=== PATIENT | female | born 1985 | race Caucasian/White ===

== ENCOUNTER → 2018-02-16 | Outpatient (CLI) | payer OTHER, MEDICAID ==
[~2018-02-16] MED LIST: ACET-1966 PO; CALC-515 PO; LORA-802 PO; PREN-127 PO
--- NOTE | 2018-02-16 17:01 | RADIOLOGY IMAGING REPORT ---
FACILITY: [facility] PATIENT NAME: Power Veloz : 1985 MR: [id number] V: [id number] EXAM DATE: ORDERING PHYSICIAN: ALEXEY TALBERT TECHNOLOGIST: Location: [facility] Patient: Power Veloz : 1985 Visit/Account:[id number] Date of Sevice: 02/16/2018 [facility] [place] OB ANATOMICAL SURVEY History: survey ADDITIONAL HISTORY: LMP 10/01/2017 translating to a menstrual age of 19 weeks and five days COMPARISON STUDIES: none FINDINGS: Intrauterine gestations: one presentation: Variable heart rate: 160 bpm Amniotic fluid volume: ALICE 15.3 cm; MVP 4.2 cm Placenta: Fundal. No evidence of previa. Maternal adnexa: negative Cervix: closed. 6.7 cm in length. Anatomic Survey: Neural anatomy unremarkable. Limited view of the lumbosacral spine and transverse views. Spinal axi s unremarkable longitudinal plane. Face lips and nose are visualized. Four-chamber heart and outfl ow tracks, stomach, kidneys, bladder , umbilical cord, normal cord insertion seen. 2 arms and 2 legs visualized. anatomy unremarkable. Biometrics: BPD: 4.6 cm corresponding to 19 weeks six days. 56th Percentile HC: 17.5 cm corresponding to 20 weeks zero days 56th Percentile AC: 14.0 cm corresponding to 19 weeks three days 32nd Percentile FL: 3.0 cm corresponding to 19 weeks two days 27th Percentile Measurements are concordant or within normal variance with composite sonographic age of 22 weeks and five days Estimated weight (EFW): 290 grams +/- 42 grams . 28th percentile based on clinical dates. IMPRESSION: Single living intrauterine gestation in variable presentation with biometric measurements and composi te sonographic age within normal variance of previously established clinical dates. anatomy: Limited view of the spinal anatomy. Otherwise unremarkable Report Dictated By: Shlomo Aguilar MD at 02/16/2018 4:44 PM Report E-Signed By: Shlomo Aguilar MD at 02/16/2018 4:56 PM WSN:[email or web address]
== END ==
LOC: US 09:50
PROVIDERS: ATTEND Advanced Practice Midwife
DX: Z34.92 Encounter for supervision of normal pregnancy, unspecified, second trimester (principal)

== ENCOUNTER → 2018-03-26 | Outpatient (CLI) | payer OTHER, MEDICAID ==
[~2018-03-26] MED LIST changes: +DIPH0.5S2 IM; +DOCU-416 PO; +FERR-41 PO; +RANI-366 PO; +SERT25TA87 PO
== END ==
LOC: LAB 15:36
PROVIDERS: ATTEND Advanced Practice Midwife
DX: O13.2 Gestational [pregnancy-induced] hypertension without significant proteinuria, second trimester (principal); R10.11 Right upper quadrant pain
CPT/HCPCS: 36415; 82040; 82247; 82310; 82374; 82435; 82565; 82947; 84075; 84132; 84155; 84295; 84450; 84460; 84520; 85027

== ENCOUNTER → 2018-04-06 | Outpatient (CLI) | payer OTHER, MEDICAID ==
[~2018-04-06] MED LIST changes: +DIPH0.5D12 IM; -DIPH0.5S2 IM; -DOCU-416 PO; -FERR-41 PO; -RANI-366 PO
[2018-04-06 14:25] LABS: PLATELET COUNT, AUTOMATED 312 K/uL (150-450)
== END ==
LOC: LAB 13:19
PROVIDERS: ATTEND Advanced Practice Midwife
DX: O13.9 Gestational [pregnancy-induced] hypertension without significant proteinuria, unspecified trimester (principal); R10.11 Right upper quadrant pain
CPT/HCPCS: 36415; 82040; 82247; 82310; 82374; 82435; 82565; 82570; 82947; 82950; 84075; 84132; 84155; 84156; 84295; 84450; 84460; 84520; 85025

== ENCOUNTER 2018-04-10 19:42 | Observation (INO) | payer OTHER, MEDICAID ==
[~2018-04-10] VITALS: Ht 157.5 cm; Wt 58.5 kg
[2018-04-10 20:00] VITALS: BP 146/82
[2018-04-10] MEDS ORDERED: RANI-366 PO (20:41)
[2018-04-10] MEDS ORDERED: ACET-1966 PO (20:41)
[2018-04-10 20:43] VITALS: BP 146/82; Ht 157.5 cm; Wt 58.5 kg
[2018-04-10 20:48] LABS: PLATELET COUNT, AUTOMATED 285 K/uL (150-450)
[2018-04-10] MEDS ORDERED: ACETAMINOPHEN 500 MG TAB PO ONE (21:00)
[2018-04-10] MEDS ORDERED: RANITIDINE HCL 150 MG TAB PO ONE (21:45)
--- NOTE | 2018-04-10 22:13 | History & Physical ---
History of Present Illness Age of Patient: 32 : 1 Para or TPAL: 0 EDC per LMP: July 08, 2018 EDC per U/S: July 08, 2018 Estimated Gestational Age: 27 Chief Complaint "right upper quadrant pain" History of Present Illness Pt is 32 y/o that presents with report of intermittent RUQ pain that she has had on and off for 1-2 wks. States pain was more persistent today with onset around 7pm. Pain usually lasts about an hour and subsides but as stated previously, she is was more concerned because of the persistence of pain today. Describes pain as sharp pain from the mid epigastric region the R lat side more up in the rib area. States the pain right now is 4 on 0-10 scale but was a 6-7 on admission. Denies symptoms are aggravated by anything and they spontaneously resolve without treatment. Denies emesis but does report some nausea but states she has nausea on and off since early in . Pt reports mild headache and had headache earlier in the day that did not resolve completely with tylenol. Last dose of tylenol was at 11am today. Denies visual changes. Reports +FM, occasional BH contractions. States she in under a great deal of stress with school and FOC. History Patient's Blood Type: O Positive Rubella Status: Immune Group B Strep Screen: Unknown Obstetrical History: Pt has had routine care initiated at 10 weeks, no gaps in care. Past Medical History: Past medical history is negative for chronic illnesses. Pt has a history of depression and anxiety, was hosptialized as a teen for suicidal ideation without attempt. No history of surgeries or other hospitalizations. Allergies: Coded Allergies: clarithromycin (Unverified Allergy, Unknown, "Stomach pain", 04/10/18) divalproex sodium (Unverified Allergy, Unknown, Rash, 04/10/18) lamotrigine (Unverified Allergy, Unknown, Rash, 04/10/18) nitrofurantoin (Unverified Allergy, Unknown, "Hot flash", 04/10/18) oxcarbazepine (Unverified Allergy, Unknown, Rash, 04/10/18) Social History: Pt is single, contentious situation with FOC. Denies physical abuse. Denies alcohol tobacco or rec drug use. Family History: FHx: heart disease FATHER MOTHER Med Rec Home Meds Active Scripts Sertraline Hcl (ZOLOFT) 25 Mg Tablet, 1 TAB PO QDAY, #30 TAB 5 Refills Prov:CONRAD MATTHEWS CNM 04/06/18 Reported Medications Acetaminophen (TYLENOL) 325 Mg Tablet, 325 MG PO PRN, #2 TAB 04/10/18 Ranitidine Hcl (ZANTAC) 150 Mg Tablet, 150 MG PO BID, TAB 04/10/18 Calcium Carbonate (TUMS) 200 Mg Tab.chew, 200 MG PO, TAB.CHEW 01/13/18 Vits W-Ca,Fe,Fa(<1MG) ( VITAMINS) 1 Each Tablet, 1 EACH PO DAILY, TAB 12/12/17 Review of Systems Constitutional: No Fever, No Weight Loss, No Weight Gain, No Chills, No Night Sweats, No Other Neurological: No Syncope, No Confusion, No Weakness, No Dizziness, No Slurred Speech, No Other Eyes: No Vision Change, No Loss of Vision, No Photophobia, No Other ENT: No Hearing Loss, No Sinus Congestion, No Sore Throat, No Ear Ache, No Tinnitus, No Other Cardiovascular: No Chest Pain, No Palpitations, No Orthostatic Hypotension, No Other Respiratory: No Shortness of Breath, No Cough, No Wheezing, No Other Gastrointestinal: Nausea; No Vomiting, No Diarrhea, No Dysphagia, No Constipation, No Early Satiety, No Hematemesis, No Hematochezia, No Melena, No Abdominal Pain, No Other Genitourinary: Dysuria Musculoskeletal: Pain, Sprain, Strain, Impaired Mobility, Other Psychiatric: Depression, Anxiety Exam General Exam Vital Signs Vital Signs Date Time Temp Pulse Resp B/P (MAP) Pulse Ox O2 Delivery O2 Flow Rate FiO2 04/10/18 20:43 98.8 79 16 146/82 (103) 100 Room Air General Apperance: Alert/Awake/No Acute Distress, Afebrile; No Facial Edema, No Other Neuro: Headache (mild occipital headache) Cardiovascular: Regular Rate and Rhythm; No Edema Respiratory: Clear to Auscultation Abdomen: Gravid - Tender, RUQ Tender (from mid epigastric region to R lateral region) : No CVA Tenderness, No Other Musculoskeletal: No Weakness/Pain Psychological: Alert & Oriented X3, Appropriate Mood & Affect Uterine Contractions(Q min): 0 UC Resting Tone: Soft Fetus Feeling Movement?: Yes Heart Tones: 135 Heart Tone Variabilty: Moderate FHT Accelerations: 15X15 FHT Decelerations: None FHT Category: I Medical Decision Making Data Points Result Diagram: 04/10/18203804/10/182038 Urine P/C 1.7 Amylase 135 AST 21 ALT 24 VTE Prophylasis: Adult Deep Vein Thrombosis/Pulmonary: No Pharmacological Contraindicati: Pt at Low Risk for VTE Mechanical Contraindications: Pt at Low Risk for VTE 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 Monitor BP when awake, nurses to call if BP >140/>90 or persistent headache. 2. Will reassess in am, possibly discharge if BP are normotensive. 3. Dr. Ugalde informed of condtion and agrees with keeping pt in for observation. ) Condition Stable JODY MCNULTY CNM Apr 10, 2018 22:13
[2018-04-11] MEDS ORDERED: ACETAMINOPHEN 500 MG TAB PO PRN (03:15)
[2018-04-11] MEDS ORDERED: SERTRALINE HCL 50 MG TAB PO SCH (09:30)
--- NOTE | 2018-04-11 10:13 | OB/GYN Progress Note ---
OB Subjective Progress Notes Subjective Pt states she slept okay last night on and off. Denies RUQ pain at this time. Pt does report a mild frontal headache. Denies visual disturbances. While visiting with pt regarding plan she suddenly developed lightheadedness. Lowered head of bed and placed on her side and episode passed. GI: POS Nausea (no emesis. ); NEG Vomiting, NEG Flatus, NEG Bowel Movement : Voiding Well Pain: Mild (has not tried tylenol) Neurological: Headache (Mild frontal headache, rates 5 on 0-10) Eyes: No Visual Disturbances OB Objective Physical Exam Vital Signs Date Time Temp Pulse Resp B/P (MAP) Pulse Ox O2 Delivery O2 Flow Rate FiO2 04/10/18 20:43 98.8 79 16 146/82 (103) 100 Room Air General Appearance: Alert/Awake/No Acute Distress, Afebrile Neurological: Headache (mild occipital headache) Eyes: Visual Disturbances (absent) Cardiovascular: Regular Rate and Rhythm Respiratory: Clear to Auscultation Abdomen: RUQ Non-Tender Extremities: Reflexes (patellar reflexes 3+) Psychological: Alert & Oriented X3, Appropriate Mood & Affect Result Diagram: 04/10/18203804/10/182038 24 hour urine started @ 0640 Assessment and Plan 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 Will continue to monitor, NST after breakfast 2. Medicate with tylenol for headache, 3. restart routine medications 4. Continue 24 hour urine 5. May DC to home to complete 24 hour urine at noon if NST is reactive. ) Problems: (1) Elevated blood pressure affecting , antepartum JODY MCNULTY CNM Apr 11, 2018 09:53
--- NOTE | 2018-04-11 15:17 | RADIOLOGY IMAGING REPORT ---
FACILITY: [facility] [place] PATIENT NAME: Power Veloz : 1985 MR: [id number] V: [id number] EXAM DATE: ORDERING PHYSICIAN: JODY MCNULTY TECHNOLOGIST: Location: [facility] Patient: Power Veloz : 1985 Visit/Account:[id number] Date of Sevice: 04/11/2018 EXAMINATION: Limited right upper quadrant ultrasound Additional Pertinent history: Right upper quadrant pain intermittent for one month. Worse last night. Patient 27 weeks . COMPARISON STUDIES: None. FINDINGS: Gallbladder: no stones, sludge, wall thickening or pericholecystic fluid. Liver: Normal size and echotexture. No focal normality and a smooth surface. Portal vein is patent. N o ascites. Common duct: normal 2.7 mm. Pancreas: Normal. Right kidney: Mild prominence of the collecting system without stone or focal abnormality. Otherwise unremarkable. Proximal IVC/Aorta: negative IMPRESSION: 1. No acute abnormality. Normal gallbladder, common bile duct, liver and pancreas. 2. Mild prominence of the right renal collecting system. Cause is not identified. Possibly secondary to the but nonspecific. Report Dictated By: Nghia Hernandes at 04/11/2018 3:10 PM Report E-Signed By: Nghia Hernandes at 04/11/2018 3:13 PM WSN:[id number]
--- NOTE | 2018-04-11 15:35 | OB/GYN Discharge Summary ---
Discharge Summary Reason for Hosp/Final Diag: (1) Elevated blood pressure affecting , antepartum Status: Resolved Hospital Course & Plan: Pt was evaluated for preeclampsia and cholelithiasis. Both were ruled out at this point pending 24 hour urine for protein. Pt has tolerated PO fluid and food, headache resolved and RUQ pain is only intermittent and less painful. Pt will be discharged to home with preeclampsia precautions, encouraged to reduce fatty foods. Has follow up appt 04/20/18. Recommend tylenol for headache, rest, fluids and avoid prolonged R side lying. Lates Vital Signs Vital Signs Date Time Temp Pulse Resp B/P (MAP) Pulse Ox O2 Delivery O2 Flow Rate FiO2 04/10/18 20:43 98.8 79 16 146/82 (103) 100 Room Air Weight (Pounds): 129 Result Diagram: 04/10/18203804/11/18 1231 Condition: Improved Discharge: Home, Self Alf Meds Active Scripts Sertraline Hcl (ZOLOFT) 25 Mg Tablet, 1 TAB PO QDAY, #30 TAB 5 Refills Prov:CONRAD MATTHEWS [facility] 04/06/18 Reported Medications Acetaminophen (TYLENOL) 325 Mg Tablet, 325 MG PO PRN, #2 TAB 04/10/18 Ranitidine Hcl (ZANTAC) 150 Mg Tablet, 150 MG PO BID, TAB 04/10/18 Calcium Carbonate (TUMS) 200 Mg Tab.chew, 200 MG PO, TAB.CHEW 01/13/18 Vits W-Ca,Fe,Fa(<1MG) ( VITAMINS) 1 Each Tablet, 1 EACH PO DA VERNON, TAB 12/12/17 Follow up with: [facility] [phone] Follow up in: Keep scheduled appoint Discharge Diet: As Tolerates (but encouraged low fat diet. ) Discharge Activity: As Tolerates Special Instructions: Will return 24 hour urine in am on 04/12/18. JODY MCNULTY Apr 11, 2018 15:34
== END 2018-04-11 15:53 | disposition home or self-care (01) ==
LOC: OB 19:42
PROVIDERS: ADMIT Obstetrics & Gynecology; ATTEND Obstetrics & Gynecology
DX: O26.892 Other specified pregnancy related conditions, second trimester (principal); Z3A.27 27 weeks gestation of pregnancy
CPT/HCPCS: 36415; 76705; 81001; 82150; 82570; 83615; 83690; 84156; 84550; 85025; G0378; G0379; 82040; 82247; 82310; 82374; 82435; 82565; 82947; 84075; 84132; 84155; 84295; 84450; 84460; 84520

== ENCOUNTER → 2018-04-21 | Outpatient (CLI) | payer OTHER, MEDICAID ==
[2018-04-10 20:43] VITALS: BMI 23.6
[~2018-04-21] MED LIST changes: +RANI-366 PO
== END ==
LOC: LAB 07:51
PROVIDERS: ATTEND Obstetrics & Gynecology
DX: Z02.9 Encounter for administrative examinations, unspecified (principal)

== ENCOUNTER → 2018-04-21 | Outpatient (CLI) | payer OTHER, MEDICAID ==
[2018-04-10 20:43] VITALS: BMI 23.6
== END ==
LOC: LAB 15:53
PROVIDERS: ATTEND Obstetrics & Gynecology
DX: O14.90 Unspecified pre-eclampsia, unspecified trimester (principal)
CPT/HCPCS: 36415; 82040; 82247; 82310; 82374; 82435; 82565; 82947; 84075; 84132; 84155; 84295; 84450; 84460; 84520; 85027

== ENCOUNTER → 2018-05-05 | Outpatient (CLI) | payer OTHER, MEDICAID ==
[2018-04-10 20:43] VITALS: BMI 23.6
== END ==
LOC: LAB 16:06
PROVIDERS: ATTEND Obstetrics & Gynecology
DX: O14.93 Unspecified pre-eclampsia, third trimester (principal)
CPT/HCPCS: 36415; 82040; 82247; 82310; 82374; 82435; 82565; 82947; 84075; 84132; 84155; 84295; 84450; 84460; 84520; 85027

== ENCOUNTER → 2018-05-08 | Outpatient (CLI) | payer OTHER, MEDICAID ==
[2018-04-10 20:43] VITALS: BMI 23.6
[~2018-05-08] MED LIST changes: +DOCU-416 PO; +FERR-41 PO
== END ==
LOC: LAB 10:57
PROVIDERS: ATTEND Obstetrics & Gynecology
DX: Z11.3 Encounter for screening for infections with a predominantly sexual mode of transmission (principal); Z11.8 Encounter for screening for other infectious and parasitic diseases
CPT/HCPCS: 87491; 87591

== ENCOUNTER → 2018-05-12 | Outpatient (CLI) | payer OTHER, MEDICAID ==
[2018-04-10 20:43] VITALS: BMI 23.6
== END ==
LOC: LAB 16:29
PROVIDERS: ATTEND Obstetrics & Gynecology
DX: O14.93 Unspecified pre-eclampsia, third trimester (principal)
CPT/HCPCS: 36415; 82040; 82247; 82310; 82374; 82435; 82565; 82947; 84075; 84132; 84155; 84295; 84450; 84460; 84520; 85027

== ENCOUNTER → 2018-05-19 | Outpatient (CLI) | payer OTHER, MEDICAID ==
[2018-04-10 20:43] VITALS: BMI 23.6
== END ==
LOC: LAB 16:29
PROVIDERS: ATTEND Obstetrics & Gynecology
DX: O14.93 Unspecified pre-eclampsia, third trimester (principal)
CPT/HCPCS: 36415; 82040; 82247; 82310; 82374; 82435; 82565; 82947; 84075; 84132; 84155; 84295; 84450; 84460; 84520; 85027

== ENCOUNTER → 2018-05-26 | Outpatient (CLI) | payer OTHER, MEDICAID ==
[2018-04-10 20:43] VITALS: BMI 23.6
[~2018-05-26] MED LIST changes: -DIPH0.5D12 IM; +DIPH0.5S2 IM
== END ==
LOC: LAB 15:30
PROVIDERS: ATTEND Student in an Organized Health Care Education/Training Program
DX: Z36.85 Encounter for antenatal screening for Streptococcus B (principal); O14.93 Unspecified pre-eclampsia, third trimester
CPT/HCPCS: 36415; 82040; 82247; 82310; 82374; 82435; 82565; 82947; 84075; 84132; 84155; 84295; 84450; 84460; 84520; 85027; 87081

== ENCOUNTER → 2018-05-28 | Outpatient (CLI) | payer OTHER, MEDICAID ==
[2018-04-10 20:43] VITALS: BMI 23.6
--- NOTE | 2018-05-28 19:14 | RADIOLOGY IMAGING REPORT ---
FACILITY: [facility] [place] PATIENT NAME: Power Veloz : 1985 MR: [id number] V: [id number] EXAM DATE: [id number] ORDERING PHYSICIAN: CONRAD MATTHEWS TECHNOLOGIST: Location: [facility] Patient: Power Veloz : 1985 Visit/Account:[id number] Date of Sevice: 05/28/2018 Limited OB ultrasound Indication: Hypertension. Evaluate growth and ALICE. Comparison: February 16, 2018 FINDINGS: Intrauterine gestations: one presentation: Transverse heart rate: 155 bpm Amniotic fluid index: 21 cm Largest amniotic fluid pocket 6.3 cm Placenta: Anterior/fundal without previa Gestational Parameters: BPD: 8.53 cm 34 weeks and 3 days. 59th percentile HC: 32.62 cm 37 weeks and 0 days. 86th percentile AC: 30.99 cm 35 weeks and 0 days. 79th percentile FL: 6.41 cm 33 weeks and 1 day. 18th percentile Average ultrasound age (AUA): 35 weeks and 0 days. Estimated gestational age based on LMP datin weeks and 0 days JAIME: 07/02/2018 based on today's ultrasound age Estimated weight (EFW): 2467 g +/-360 g EFW for LMP: 62nd percentile IMPRESSION: 1. Single live intrauterine gestation; estimated ultrasound age 35 weeks and 0 days. 2. ALICE measuring 21 cm Report Dictated By: Keagan Serra MD at 05/28/2018 7:06 PM Report E-Signed By: Keagan Serra MD at 05/28/2018 7:09 PM WSN:[id number]
== END ==
LOC: US 01:35
PROVIDERS: ATTEND Advanced Practice Midwife
DX: O14.93 Unspecified pre-eclampsia, third trimester (principal)
CPT/HCPCS: 76815

== ENCOUNTER → 2018-06-02 | Outpatient (CLI) | payer OTHER, MEDICAID ==
[2018-04-10 20:43] VITALS: BMI 23.6
== END ==
LOC: LAB 16:26
PROVIDERS: ATTEND Obstetrics & Gynecology
DX: O14.93 Unspecified pre-eclampsia, third trimester (principal)
CPT/HCPCS: 36415; 82040; 82247; 82310; 82374; 82435; 82565; 82947; 84075; 84132; 84155; 84295; 84450; 84460; 84520; 85027

== ENCOUNTER → 2018-06-07 | Outpatient (REF) | payer OTHER, MEDICAID ==
[2018-04-10 20:43] VITALS: BMI 23.6
== END ==
LOC: ZZSENDIN 10:04
PROVIDERS: ATTEND Obstetrics & Gynecology
DX: O14.13 Severe pre-eclampsia, third trimester (principal)
CPT/HCPCS: 82570; 84156

== ENCOUNTER → 2018-06-08 | Outpatient (CLI) | payer OTHER, MEDICAID ==
[2018-04-10 20:43] VITALS: BMI 23.6
== END ==
LOC: LAB 15:00
PROVIDERS: ATTEND Obstetrics & Gynecology
DX: O14.03 Mild to moderate pre-eclampsia, third trimester (principal)
CPT/HCPCS: 36415; 82040; 82247; 82310; 82374; 82435; 82565; 82947; 84075; 84132; 84155; 84295; 84450; 84460; 84520; 85027

== ENCOUNTER → 2018-06-16 | Outpatient (CLI) | payer OTHER, MEDICAID ==
[2018-04-10 20:43] VITALS: BMI 23.6
[2018-06-16 16:51] LABS: PLATELET COUNT, AUTOMATED 286 K/uL (150-450)
== END ==
LOC: LAB 16:28
PROVIDERS: ATTEND Advanced Practice Midwife
DX: O16.3 Unspecified maternal hypertension, third trimester (principal); O14.93 Unspecified pre-eclampsia, third trimester
CPT/HCPCS: 36415; 82040; 82247; 82310; 82374; 82435; 82565; 82947; 84075; 84132; 84155; 84295; 84450; 84460; 84520; 85025

== ENCOUNTER 2018-06-19 19:51 | Observation (INO) | payer OTHER, MEDICAID ==
[~2018-06-19] VITALS: Ht 157.5 cm; Wt 61.7 kg
[2018-06-19] MEDS ORDERED: DLR(*) 1000 ML BAG 1,000 ML IV PRN (19:52)
[2018-06-19] MEDS ORDERED: LR(*) 1000 ML BAG 1,000 ML IV PRN (19:52)
[2018-06-19 20:36] LABS: PLATELET COUNT, AUTOMATED 337 K/uL (150-450)
[2018-06-19 20:40] VITALS: BP 150/82; Ht 157.5 cm; Wt 61.7 kg
--- NOTE | 2018-06-20 17:19 | History & Physical ---
History of Present Illness Age of Patient: 32 : 1 Para or TPAL: 0 Estimated Gestational Age: 37 Chief Complaint contractions and elevated BP in History of Present Illness PT well known to me here today with c/o elevated BP at home in the 140/90s and some mild contractions. She is known to have proteinuria but has not met BP criteria for pre-e. She is seen regularly in the office for 2xweekly NSTs and weekly ALICE. She reports good FM, no LOF or VB. She denies QIU, vision changes or abdominal pain. History Allergies: Coded Allergies: clarithromycin (Unverified Allergy, Unknown, "Stomach pain", 04/10/18) divalproex sodium (Unverified Allergy, Unknown, Rash, 04/10/18) lamotrigine (Unverified Allergy, Unknown, Rash, 04/10/18) nitrofurantoin (Unverified Allergy, Unknown, "Hot flash", 04/10/18) oxcarbazepine (Unverified Allergy, Unknown, Rash, 04/10/18) Social History: Pt is single, contentious situation with FOC. Denies physical abuse. Denies alcohol tobacco or rec drug use. Family History: FHx: heart disease FATHER MOTHER Med Rec Home Meds Active Scripts Sertraline Hcl (ZOLOFT) 25 Mg Tablet, 2 TAB PO QDAY, #60 TAB 5 Refills Prov:JOSE DANIEL MATTHEWSBETH Cristian LENTZ 05/22/18 Reported Medications Acetaminophen (TYLENOL) 325 Mg Tablet, 325 MG PO PRN, #2 TAB 04/10/18 Ranitidine Hcl (ZANTAC) 150 Mg Tablet, 150 MG PO BID, TAB 04/10/18 Calcium Carbonate (TUMS) 200 Mg Tab.chew, 200 MG PO, TAB.CHEW 01/13/18 Vits W-Ca,Fe,Fa(<1MG) ( VITAMINS) 1 Each Tablet, 1 EACH PO DAILY, TAB 12/12/17 Discontinued Scripts Docusate Sodium (COLACE) 100 Mg Capsule, 100 MG PO BID, #60 CAPSULE 2 Refills Prov:ALEXEY TALBERT MD 05/08/18 Ferrous Sulfate (FERROUS SULFATE) 325 Mg Tablet.dr, 1 TAB PO BID, #60 TAB 2 Refills Prov:ALEXEY TALBERT MD 3/29/19 Review of Systems Constitutional: No Fever Neurological: Other (intermittent headaches that resolve spontaneously, no currently ) Eyes: No Vision Change Cardiovascular: No Chest Pain Respiratory: No Shortness of Breath Gastrointestinal: No Nausea, No Vomiting Exam General Exam Vital Signs Vital Signs Date Time Temp Pulse Resp B/P (MAP) Pulse Ox O2 Delivery O2 Flow Rate FiO2 06/19/18 20:40 99.2 86 16 150/82 (104) 100 Room Air General Apperance: Alert/Awake/No Acute Distress Neuro: No Gross deficits Eyes: Normal Extraocular Movement & Vison ENT: Normal Abdomen: Gravid - Non-Tender Extremities: No Cyanosis,Clubbing or Edema Integumentary: Skin Intact without Lesions or Rash Psychological: Alert & Oriented X3, Appropriate Mood & Affect Cervical Dialation: 1 Cervical Effacement (%): 30 Cervical Consistency: Soft Cervical Position: Mid Station: -1 Presentation: Vertex Uterine Contractions(Q min): 2 Uterine Contraction Strength: Mild Fetus Feeling Movement?: Yes Heart Tone Variabilty: Moderate FHT Accelerations: 15X15 FHT Decelerations: None FHT Category: I Medical Decision Making Data Points Result Diagram: 06/19/18202106/19/182021 Pre-Admit Course Medical Record Review: Yes 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 Reactive NST. PT not feeling the ctx regularly. Labor and pre-e precautions reviewed. PIH labs normal with exception of known proteinuria. Pt to follow up in office as scheduled. ) ROSALVA LOPEZ DO June 20, 2018 17:19
== END 2018-06-19 21:50 | disposition home or self-care (01) ==
LOC: OB 19:51
PROVIDERS: ADMIT Obstetrics & Gynecology; ATTEND Obstetrics & Gynecology
DX: O47.1 False labor at or after 37 completed weeks of gestation (principal); Z3A.37 37 weeks gestation of pregnancy
CPT/HCPCS: 36415; 81001; 82570; 84156; 85025; G0378; G0379; 82040; 82247; 82310; 82374; 82435; 82565; 82947; 84075; 84132; 84155; 84295; 84450; 84460; 84520

== ENCOUNTER → 2018-06-23 | Outpatient (CLI) | payer OTHER, MEDICAID ==
[2018-06-19 20:40] VITALS: BMI 24.9
== END ==
LOC: LAB 15:59
PROVIDERS: ATTEND Advanced Practice Midwife
DX: O14.93 Unspecified pre-eclampsia, third trimester (principal)
CPT/HCPCS: 36415; 82040; 82247; 82310; 82374; 82435; 82565; 82947; 84075; 84132; 84155; 84295; 84450; 84460; 84520; 85027

== ENCOUNTER 2018-06-30 17:10 | Inpatient (IN) | payer OTHER, MEDICAID ==
[~2018-06-30] VITALS: Ht 157.5 cm; Wt 63.0 kg
[2018-06-30] MEDS ORDERED: CALCIUM CARBONATE 500 MG CHEW PO PRN (17:35)
[2018-06-30] MEDS ORDERED: ONDANSETRON 4 MG/2 ML VIAL IVP PRN (17:35)
[2018-06-30] MEDS ORDERED: FAMOTIDINE(*) 20MG/50ML PREMIX 50 ML IVPB PRN (17:38)
[2018-06-30] MEDS ORDERED: OXYTOCIN 30 UNIT/NS 500 ML 500 ML IV PRN (17:38)
[2018-06-30] MEDS: LR(*) 1000 ML BAG 1,000 ML IV SCH (17:38)
[2018-06-30] MEDS ORDERED: LIDOCAINE 1% LOCAL 300 MG/30ML INJ PRN (17:40)
[2018-06-30] MEDS ORDERED: LIDOCAINE/SOD BICARB 8.4% SYR SC PRN (17:40)
[2018-06-30] MEDS ORDERED: METOCLOPRAMIDE 10 MG/2 ML SDV IVP PRN (17:40)
[2018-06-30] MEDS ORDERED: DINOPROSTONE 10 MG INSERT PV ONE (17:40)
[2018-06-30] MEDS ORDERED: fentaNYL CITR 100 MCG/2 ML AMP IVP PRN (17:40)
[2018-06-30] MEDS ORDERED: FLUSH 10 ML SYR IVP PRN (17:40)
[2018-06-30] MEDS ORDERED: FLUT16SP19 NS (17:45)
[2018-06-30] MEDS ORDERED: MAGN400T4 PO (17:45)
[2018-06-30] MEDS ORDERED: LORA10CA3 PO (17:45)
[2018-06-30 17:55] LABS: PLATELET COUNT, AUTOMATED 303 K/uL (150-450)
--- NOTE | 2018-06-30 18:57 | History & Physical ---
History of Present Illness EDC per LMP: July 08, 2018 Estimated Gestational Age: 38.6 Chief Complaint Induction for preeclampsia History of Present Illness 32-year-old at 38w6d presents for induction of labor due to preeclampsia without severe features. The patient was diagnosed with isolated proteinuria on 04/12/18. She failed to have additional elevated blood pressures except for one time on labor and delivery until recently. She presented to clinic this her noon for an NST and was found to have a blood pressure 140/94. This is her second elevated in clinic. She is therefore admitted for induction of labor due to preeclampsia without severe features. She denies any preeclampsia symptoms. She denies any uterine contractions, vaginal bleeding or loss of fluid. She reports good movement. Her care is by IMG. Her is otherwise complicated by bipolar disorder, history of anorexia and social issues with father of the baby. History Patient's Blood Type: O Positive Rubella Status: Immune Group B Strep Screen: Negative Obstetrical History: Primip Past Medical History: PMH: Bipolar disorder PSH: None Allergies: Coded Allergies: clarithromycin (Unverified Allergy, Unknown, "Stomach pain", 04/10/18) divalproex sodium (Unverified Allergy, Unknown, Rash, 04/10/18) lamotrigine (Unverified Allergy, Unknown, Rash, 04/10/18) nitrofurantoin (Unverified Allergy, Unknown, "Hot flash", 04/10/18) oxcarbazepine (Unverified Allergy, Unknown, Rash, 04/10/18) Social History: Pt is single, contentious situation with FOC. Denies physical abuse. Denies alcohol tobacco or rec drug use. Family History: FHx: heart disease FATHER MOTHER Med Rec Home Meds Active Scripts Sertraline Hcl (ZOLOFT) 25 Mg Tablet, 2 TAB PO QDAY, #60 TAB 5 Refills Prov:MATTHEWSCONRAD CNM 05/22/18 Reported Medications Loratadine (CLARITIN) 10 Mg Capsule, 10 MG PO, CAPSULE 06/30/18 Fluticasone Prop 50 Mcg Ns (FLONASE 50 MCG NS) 16 Gm [place].susp, 1 SPRAY NS DAILY, BOT 06/30/18 Magnesium Oxide (MAG-OXIDE) 400 Mg Tablet, 250 MG PO 06/30/18 Acetaminophen (TYLENOL) 325 Mg Tablet, 325 MG PO PRN, #2 TAB 04/10/18 Ranitidine Hcl (ZANTAC) 150 Mg Tablet, 150 MG PO BID, TAB 04/10/18 Calcium Carbonate (TUMS) 200 Mg Tab.chew, 200 MG PO, TAB.CHEW 01/13/18 Vits W-Ca,Fe,Fa(<1MG) ( VITAMINS) 1 Each Tablet, 1 EACH PO DAILY, TAB 12/12/17 Review of Systems Constitutional: No Fever Neurological: No Syncope Eyes: No Vision Change Cardiovascular: No Chest Pain Respiratory: No Shortness of Breath, No Cough Gastrointestinal: No Nausea, No Vomiting, No Diarrhea Genitourinary: No Dysuria Musculoskeletal: No Pain Psychiatric: No Depression, No Anxiety Exam General Exam Vital Signs Vitals: Weight 139 lbs 0.6 oz / 63.632452 kg Temperature 98.0 F / 36.67 C - Temporal Pulse 80 Blood Pressure 140/94 Sitting, Left Arm Pulse Oximetry 100%, RA General Apperance: Alert/Awake/No Acute Distress Neuro: No Gross deficits Eyes: Normal Extraocular Movement & Vison Cardiovascular: Regular Rate and Rhythm Respiratory: No Respiratory Distress, Clear to Auscultation Abdomen: Gravid - Non-Tender : Normal Musculoskeletal: No Weakness/Pain Extremities: No Cyanosis,Clubbing or Edema Integumentary: Skin Intact without Lesions or Rash Psychological: Alert & Oriented X3, Appropriate Mood & Affect Cervical Dialation: 1 Cervical Effacement (%): 50 Cervical Consistency: Firm Cervical Position: Posterior Station: -3 Presentation: Vertex Uterine Contractions(Q min): 3 Uterine Contraction Strength: Mild UC Resting Tone: Soft Fetus FHT Category: I Medical Decision Making Data Points Result Diagram: 06/30/18174406/30/181744 Assessment and Plan Problems: (1) Pre-eclampsia during in third trimester, antepartum Assessment & Plan: 32-year-old at 38w6d presents for induction of labor due to preeclampsia without severe features. On the monitor, she is having UCx every 2-3 minutes but she cannot feel them. Her cervix is unfavorable, therefore, she will receive Cervidil overnight. Her laboratory evaluation is pending. Will monitor blood pressure closely. (2) Bipolar disorder Assessment & Plan: She is currently on Zoloft 50 mg per day and doing well. She has significant social issues throughout her with the father of the baby. We will monitor her mood closely . Problem Qualifiers (1) Bipolar disorder: Active/Remission status: currently active ALEXEY TALBERT MD June 30, 2018 16:43
[2018-06-30 19:00] VITALS: BP 138/86; Ht 157.5 cm; Wt 63.0 kg
[2018-06-30] MEDS ORDERED: FAMOTIDINE 20 MG TAB PO ONE (20:30)
[2018-06-30] MEDS ORDERED: ZOLPIDEM TARTRATE 5 MG TAB PO PRN (20:30)
[2018-06-30] MEDS: ACETAMINOPHEN 500 MG TAB PO PRN (21:08)
[2018-07-01] VITALS (14 sets, daily range): BP systolic 99–142; BP diastolic 66–92
[2018-07-01] MEDS: ACETAMINOPHEN 500 MG TAB PO PRN (02:49)
[2018-07-01] MEDS: LR(*) 1000 ML BAG 1,000 ML IV SCH (03:38)
[2018-07-01] MEDS ORDERED: OXYTOCIN 30 UNIT/NS 500 ML 500 ML IV PRN (04:27)
[2018-07-01] MEDS ORDERED: TERBUTALINE SULF 1 MG/ML VIAL SUBQ PRN (04:30)
[2018-07-01] MEDS ORDERED: LIDOCAINE/PF 2% 200MG/10ML AMP 200 MG/10 ML AMPUL EPI PRN (09:45)
[2018-07-01] MEDS ORDERED: fentaNYL CITR 100 MCG/2 ML AMP IT PRN (09:45)
[2018-07-01] MEDS ORDERED: LIDO/EPI 2% MPF 1:200,000 20ML EPI PRN (09:45)
[2018-07-01] MEDS ORDERED: FENTANYL/ROPIVACAINE 100 ML BAG EPI PRN (09:45)
[2018-07-01] MEDS ORDERED: BUPIVACAINE 0.25% MPF INJ EPI PRN (09:45)
[2018-07-01] MEDS ORDERED: CITRIC ACID/SOD CIT 15 ML UDC PO PRN (09:45)
[2018-07-01] MEDS ORDERED: BUPIVACAINE 0.5% INJ 30ML VIAL EPI PRN (09:45)
[2018-07-01] MEDS ORDERED: DLR(*) 1000 ML BAG 1,000 ML IV SCH (09:48)
[2018-07-01] MEDS ORDERED: fentaNYL CITR 100 MCG/2 ML AMP ONE (10:14)
[2018-07-01] MEDS ORDERED: OXYTOCIN 10 UNIT/ML SDV ONE (10:15)
[2018-07-01] MEDS ORDERED: MORPHINE PF 5 MG/10 ML AMP ONE (10:29)
[2018-07-01] MEDS ORDERED: OXYTOCIN 30 UNIT/D5LR 500 ML 500 ML IV PRN (11:43)
[2018-07-01] MEDS ORDERED: PROMETHAZINE 25 MG/ML 1 ML AMP IVP PRN (11:45)
[2018-07-01] MEDS ORDERED: MAGNESIUM HYDROXIDE* 30ML UDCP PO PRN (11:45)
[2018-07-01] MEDS ORDERED: LANOLIN OINT 7 GM TUBE TP PRN (11:45)
[2018-07-01] MEDS ORDERED: ONDANSETRON 4 MG/2 ML VIAL IV PRN (11:45)
[2018-07-01] MEDS ORDERED: SIMETHICONE 80 MG CHEW CHEW PRN (11:45)
--- NOTE | 2018-07-01 11:48 | Post Operative Note ---
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 Rose Strapper And Buffer: Dr. Sánchez, dental laboratory assistant was deemed necessary because no entry level marketing assistant or resident physician was available. Anesthesia: Spinal Diagnosis Pre-Op Diagnosis: IUP @ 39 weeks, pre-eclampsia without severe features, nonreassuring status Post-Op Diagnosis: Same as above with delivery of viable cph male , 6lb 8 oz, apgars 7 and 8 Procedure Findings: Normal appearing uterus, tubes and ovaries Procedure(s): PLTCS Specimen Removed:(Maybe N/A): Umbilical cord gases, cord blood, placenta Complications: none Fluids Estimated Blood Loss: 500 cc Dictated Date OP Note Dictated: July 01, 2018 ROSALVA ROSE DO July 01, 2018 11:47
[2018-07-01] MEDS ORDERED: PHENYLEPHRINE 10 MG/1 ML VIAL ONE (11:52)
[2018-07-01] MEDS ORDERED: ONDANSETRON 4 MG/2 ML VIAL ONE (11:52)
--- NOTE | 2018-07-01 12:43 | Anesthesia OB Pre-Anes Eval ---
History of Present Illness Anesthesia Start Date: July 01, 2018 Anesthesia Start Time: 10:38 OB Anesthesia Diagnosis: induction - medical, primary c/section Current Complication: other (Preeclampsia (See OB note)) Complications: Distress (See RN and OB notes for details) EDC: July 08, 2018 : 1 Para: 0 Vital Signs: at 10:39: BP 142/92, HR 80s, O2sat 98% Pain Ratin Result Diagram: 06/30/18 1745 06/30/18 1745 Height (Inches): 62.00 Weight (Pounds): 139 Platelet trends have been stable Past Medical History Medical History: hypertension (isolated/periodic), other (Hx Bipolar disorder, Hx Anorexia) Surgical History: no surgical history (Had wisdom teeth pulled. Unsure of anesthesia used.) Previous Anesthesia: other Hx Anesthesia Reactions: No Hx Family Anesthesia Reaction: No Current Medications: pitocin Home Meds Active Scripts Sertraline Hcl (ZOLOFT) 25 Mg Tablet, 2 TAB PO QDAY, #60 TAB 5 Refills Prov:CONRAD MATTHEWS CNCristian 05/22/18 Reported Medications Loratadine (CLARITIN) 10 Mg Capsule, 10 MG PO, CAPSULE 06/30/18 Fluticasone Prop 50 Mcg Ns (FLONASE 50 MCG NS) 16 Gm [place].susp, 1 SPRAY NS DAILY, BOT 06/30/18 Magnesium Oxide (MAG-OXIDE) 400 Mg Tablet, 250 MG PO 06/30/18 Acetaminophen (TYLENOL) 325 Mg Tablet, 325 MG PO PRN, #2 TAB 04/10/18 Ranitidine Hcl (ZANTAC) 150 Mg Tablet, 150 MG PO BID, TAB 04/10/18 Calcium Carbonate (TUMS) 200 Mg Tab.chew, 200 MG PO, TAB.CHEW 01/13/18 Vits W-Ca,Fe,Fa(<1MG) ( VITAMINS) 1 Each Tablet, 1 EACH PO DAILY, TAB 12/12/17 Allergies: Coded Allergies: clarithromycin (Unverified Allergy, Unknown, "Stomach pain", 04/10/18) divalproex sodium (Unverified Allergy, Unknown, Rash, 04/10/18) lamotrigine (Unverified Allergy, Unknown, Rash, 04/10/18) nitrofurantoin (Unverified Allergy, Unknown, "Hot flash", 04/10/18) oxcarbazepine (Unverified Allergy, Unknown, Rash, 04/10/18) Anesthesia OB ROS Eyes ROS: contacts in Airway Class: l GI ROS: ice chips ASA Classification: 2 Assessment and Plan Anesthesia Plan: SAB Assessment: lungs CTA bilaterally, RRR, no MRG, no syncope, no CP, no edema Anesthesia Stop Day: July 01, 2018 Anesthesia Stop Time: 11:53 DEVYN DIOR CRNA July 01, 2018 12:43
--- NOTE | 2018-07-01 12:49 | Procedure Note ---
Anesthetic Placement Note Anesthesia Plan: SAB Permit for Anesthesia Signed: Yes Anesthesia Technique: Patient Sitting Anesthesia Prep: Chlorhexidine (no tint in chlorhexidine. Betadine used as well) Interspace: L 3-4 Local Anesthetic: 1% Lidocaine, 25 Gauge Needle Amount Local - cc's: 2 Anesthesia Needle: 25g Pencan w/Introducer Anesthesia Attempts: 1 Intrathecal Needle: Other (25g pencil point) Cerebral Spinal Fluid: Yes, Clear, Other (+ swirl in syringe with aspiration X 2 during slow injection of local) Anesthesia Tray: Lot Number ([id number]), Expiration Date (12/10/2018), Reference Number ([id number]) Anesthesia Medications: Intrathecal Dose: mg Marcaine MPF (1.5 mL 0.75% bupivacaine in dextrose injec latanya intrathecal), Other (150 mcg Duramorph) Complications: None DEVYN DIOR CRNA July 01, 2018 12:49
[2018-07-01] MEDS ORDERED: NALBUPHINE HCL 10 MG/ML AMP IVP PRN (12:50)
[2018-07-01] MEDS ORDERED: diphenhydrAMINE 50 MG/ML VIAL IV PRN (12:50)
[2018-07-01] MEDS ORDERED: NALOXONE HCL 0.4 MG/ML VIAL IV PRN (12:50)
[2018-07-01] MEDS: DLR(*) 1000 ML BAG 1,000 ML IV PRN ×2 (13:00→18:44)
[2018-07-01] MEDS: KETOROLAC 30 MG/ML VIAL IVP SCH ×2 (13:05→19:11)
--- NOTE | 2018-07-01 13:07 | OPERATIVE REPORT 1 ---
EVENT DATE: July 01, 2018 SURGEON: Jazzmine Rose DO ANESTHESIA: Spinal, Anselmo Thornton CRNA ADDING MACHINE SERVICER: Dino Sánchez DO (Department Specialist was deemed necessary due to the lack of a surgical life science research assistant or resident physician). PREOPERATIVE DIAGNOSIS Intrauterine at 39 weeks with preeclampsia without severe features and nonreassuring status remote from delivery. POSTOPERATIVE DIAGNOSES 1. Intrauterine at 39 weeks with preeclampsia without severe features and nonreassuring status remote from delivery. 2. Delivery of a viable cephalic male weighing 6 pounds, 8 ounces with Apgars of 7 and 8. PROCEDURE PERFORMED Primary low transverse section. ESTIMATED BLOOD LOSS 500 cc. TISSUE REMOVED Umbilical cord blood, umbilical cord gasses and placenta. COMPLICATIONS None. DISPOSITION Stable to recovery room. DESCRIPTION OF PROCEDURE After informed consent was obtained, the patient was taken to the operating room. Spinal anesthesia was administered and round to be adequate. She was placed on the operating table in the supine position with leftward tilt and then prepped and draped in normal sterile fashion. Pfannenstiel skin incision was made using the scalpel and carried down to the underlying layer of the fascia. The fascia was incised in midline and extended laterally with sharp dissection. Joan clamp were then placed around the superior and inferior aspect of the fascia, which was then tented up and underlying rectus muscles were dissected off sharply. Rectus muscles were then in the midline Peritoneum was entered digitally and extended out laterally with sharp dissection. At this time, the Power abdominal retractor was placed and secured. Hysterotomy incision was then made using the scalpel and it was extended out laterally with blunt dissection. There was immediate leakage of clear amniotic fluid. At this time, the 's head was delivered atraumatically. Shoulders and body followed. The infant was vigorous at . Nose and mouth were bulb suctioned. Three vessel cord was clamped and cut after a 30-second delay. At this time, the was handed off to awaiting position classification specialist, Dr. Leung. Next, the placenta was delivered under manual traction. Umbilical cord blood and umbilical cord gasses were obtained and the placenta was passed off the field. The uterus was exteriorized and cleared of all clots and debris and hysterotomy incision was repaired in running locked fashion using 0 Vicryl. Two additional stitches of 0 Vicryl were used along the hysterotomy in [id number] fashion to ensure hemostasis. Next, irrigation was performed. We also noted to have a normal uterus with normal appearing fallopian tubes and ovaries The uterus was returned back to the abdomen. Hysterotomy incision was noted to remain dry. Gutters were cleared of any remaining clots or debris. At this time, the Power abdominal retractor was removed and we proceeded with closure of our fascia. The fascia was reapproximated in the midline using #1 Vicryl. After fascial closure, we irrigated our subcutaneous layer again. The subcutaneous layer was noted to be dry and it was reapproximated using 3-0 Vicryl. Next, the skin was closed using a subcuticular stitch of 4-0 Monocryl, reinforced with Dermabond skin glue. Patient tolerated the procedure well. Sponge, lap and instrument counts were correct. She was taken to the recovery room in stable condition. ABBIE
[2018-07-01] MEDS ORDERED: KETOROLAC 30 MG/ML VIAL IVP SCH (18:00)
[2018-07-01] MEDS ORDERED: ceFAZolin(*) 2GM/D5W 50ML 50 ML IVPB ONE (19:17)
--- NOTE | 2018-07-01 19:52 | Labor Progress Note ---
Labor Subjective Progress Notes Subjective Late entry into chart because computer system was down and I was unable to log in. Event occured around 1030 am on 07/01/18. Called to pts room due to tachycardia and decels. Pt feeling ctx and uncomfortable. Membranes intact. Feeling Movement?: Yes Labor Pain: Moderate Neurological: No Headache Eyes: No Visual Disturbances Labor Objective Vital Signs Vital Signs Date Time Temp Pulse Resp B/P (MAP) Pulse Ox O2 Delivery O2 Flow Rate FiO2 07/01/18 17:20 97.7 68 16 134/78 (96) 99 Room Air Cervical Dialation: 3.5 Cervical Effacement (%): 50 Cervical Consistency: Moderate Station: -2 Presentation: Vertex Uterine Contractions(Q min): 1 Uterine Contraction Strength: Strong Fetus Heart Tones: 180 Heart Tone Variabilty: Moderate FHT Accelerations: 15X15 FHT Decelerations: Late, Variable FHT Category: II General Exam General Appearance: Alert/Awake/No Acute Distress Abdomen: Gravid - Non-Tender Psychological: Alert & Oriented X3, Appropriate Mood & Affect Other Result Diagram: 06/30/18 1745 06/30/18 1745 Assessment and Plan Problems: (1) distress affecting labor Assessment & Plan: PT remote from delivery. Pitocin was turned off for extended period of time and fetus continued to have intermittent decels and tachycardia. Due to nonreassuring status pt was consented for PLTC. Informed consent was obtained. Risks, benefits and alternatives to surgery were discussed with her. Anesthesia and peds were notified. (2) Pre-eclampsia during in third trimester, antepartum Assessment & Plan: (3) Bipolar disorder Problem Qualifiers (1) Bipolar disorder: Active/Remission status: currently active ROSALVA LOPEZ DO July 01, 2018 19:51
[2018-07-01] MEDS: FAMOTIDINE 20 MG TAB PO SCH (21:32)
[2018-07-01] MEDS: DOCUSATE CALCIUM 240 MG CAP PO SCH (21:32)
[2018-07-02] VITALS (7 sets, daily range): BP systolic 115–144; BP diastolic 67–82
[2018-07-02] MEDS: KETOROLAC 30 MG/ML VIAL IVP SCH ×2 (02:20→09:09)
[2018-07-02 06:10] LABS: PLATELET COUNT, AUTOMATED 221 K/uL (150-450)
[2018-07-02] MEDS ORDERED: FERROUS GLUCONATE 324 MG TAB PO SCH (09:00)
[2018-07-02] MEDS: FAMOTIDINE 20 MG TAB PO SCH ×2 (09:08→20:40)
[2018-07-02] MEDS: DOCUSATE CALCIUM 240 MG CAP PO SCH ×2 (09:08→20:40)
[2018-07-02] MEDS: SERTRALINE HCL 50 MG TAB PO SCH (09:08)
--- NOTE | 2018-07-02 10:41 | OB/GYN Progress Note ---
OB Subjective Progress Notes Subjective Pt is up in the chair this am feeding baby. She is getting a good latch periodically, but baby is frequently getting a shallow latch. He did receive some donor milk during the night. She is very determined. She plans to text Fariba today as well because she is a part of the [employer]. She is feeling well this am, just a little tired. Denies dizziness upon standing. She took her prescribed iron this am, but is willing to get an transfusion if ordered. She complains of mild incisional pain, but is tolerable with PO meds. She just had her che taken out this am, so has not voided yet. She is eating and drinking. She denies QIU, vision changes, and RUQ pain. GI: POS Flatus; NEG Nausea, NEG Vomiting, NEG Bowel Movement : Vaginal Bleeding, Scant, Other (Che removed this am) Pain: Mild, Tolerating PO Pain Meds Neurological: No Headache Eyes: No Visual Disturbances OB Objective Physical Exam Vital Signs Date Time Temp Pulse Resp B/P (MAP) Pulse Ox O2 Delivery O2 Flow Rate FiO2 07/02/18 06:01 97.8 73 16 115/67 (83) 94 Room Air Intake and Output 07/02/18 07:00 Intake Total 4000 ml Output Total 3275 ml Balance 725 ml Intake Oral 1000 ml IV Total 3000 ml Output Urine Total 3275 ml General Appearance: Alert/Awake/No Acute Distress, Afebrile Neurological: No Gross deficits Eyes: Normal Extraocular Movement & Vison Cardiovascular: Normal Rhythm & Peripheral Pulses Respiratory: No Respiratory Distress, Clear to Auscultation Abdomen: Soft, Non-Tender, Non-Distended : Normal Musculoskeletal: No Weakness/Pain Extremities: No Cyanosis,Clubbing or Edema Integumentary: Skin Intact without Lesions or Rash Psychological: Alert & Oriented X3, Appropriate Mood & Affect Result Diagram: 07/02/18 0547 06/30/18 7527 Assessment and Plan Problems: (1) distress affecting labor Status: Resolved (2) Pre-eclampsia during in third trimester, antepartum (3) Bipolar disorder (4) care and examination Onset Date: ~ 07/01/2018 Status: Acute Assessment & Plan: Pt is POD # 1 from a primary C/S for NRFHT during a medical induction for GHTN/Preeclampsia. Her I+O's are sufficient, BP normotensive and afebrile. Her H/H is low today, but she is asymptomatic so we will have her start iron this am. Che is out, so will monitor voiding output. Encourage ambulation and increased hydration. Will see Fariba today or tomorrow. Continue to help pt with and getting a good latch. Problem Qualifiers (1) Bipolar disorder: Active/Remission status: currently active CONRAD MATTHEWS CNM July 02, 2018 10:41
[2018-07-02] MEDS ORDERED: IBUPROFEN 800 MG TAB PO SCH (13:00)
[2018-07-02] MEDS: IBUPROFEN 800 MG TAB PO SCH ×2 (15:44→23:42)
[2018-07-02] MEDS: FERROUS GLUCONATE 324 MG TAB PO SCH (17:00)
[2018-07-02] MEDS: oxyCODON/ACET (*)5/325MG (CII) 1 TAB TAB PO PRN (18:24)
[2018-07-03 04:00] VITALS: BP 129/72
[2018-07-03] MEDS: IBUPROFEN 800 MG TAB PO SCH ×2 (07:00→15:00)
[2018-07-03] MEDS: FERROUS GLUCONATE 324 MG TAB PO SCH (08:00)
[2018-07-03 08:10] VITALS: BP 139/80
[2018-07-03] MEDS: FAMOTIDINE 20 MG TAB PO SCH (09:49)
[2018-07-03] MEDS: SERTRALINE HCL 50 MG TAB PO SCH (09:50)
[2018-07-03] MEDS: DOCUSATE CALCIUM 240 MG CAP PO SCH (09:50)
[2018-07-03] MEDS ORDERED: PER PO (09:58)
[2018-07-03] MEDS ORDERED: IBUP800T37 PO ×2 (09:58→12:53)
--- NOTE | 2018-07-03 10:00 | OB/GYN Discharge Summary ---
Discharge Summary Reason for Hosp/Final Diag: (1) distress affecting labor Status: Resolved (2) Pre-eclampsia during in third trimester, antepartum (3) Bipolar disorder (4) care and examination Onset Date: ~ 07/01/2018 Status: Acute Hospital Course & Plan: Pt is POD # 2 from a primary C/S for NRFHT during a medical induction for GHTN/Preeclampsia. Her I+O's are sufficient, BP normotensive and afebrile. Her H/H continues to be low, but she is asymptomatic. I encouraged her to continue her iron supplements at home and iron rich foods. Will see Fariba today for more support with breast-feeding. She seems to have adequate support at home with her mother and sister, but will encourage her to continue with [facility] at [facility]. The patient is planning on staying in [employer] but will come back for her visit as needed. She is currently on 50 mg Zoloft daily for her bipolar disorder and she feels it is stable at this time. We did review signs and symptoms of increased anxiety and depression and when to call. She is voiding well and passing gas. Her incision is clean dry and intact and well approximated with no signs and symptoms of infection. She feels very "sore "but is taking ibuprofen and Percocet with good relief. Did discuss the importance of taking a stool softener as narcotics can make you constipated. The plan for her will be to be discharged today but I would like her to return next week for a blood pressure check and then in 2 weeks for her visit. We reviewed signs and symptoms of infection including mastitis, endometritis and UTI. We also reviewed increase signs and symptoms of anxiety and depression, preeclampsia symptoms, and DVT. Patient verbalizes understanding. Lates Vital Signs Vital Signs Date Time Temp Pulse Resp B/P (MAP) Pulse Ox O2 Delivery O2 Flow Rate FiO2 07/03/18 04:00 97.8 74 16 129/72 (91) 07/02/18 16:30 98 Room Air Weight (Pounds): 139 Result Diagram: 07/03/1861806/30/18 5841 Condition: Improved Discharge: Home Home Meds Active Scripts Oxycodone Hcl/Acetaminophen (PERCOCET 5-325 MG TABLET) 1 Each Tablet, 1-2 TAB PO Q4-6H PRN for pain, #20 TAB 0 Refills Prov:CONRAD MATTHEWS [facility] 07/03/18 Sertraline Hcl (ZOLOFT) 25 Mg Tablet, 2 TAB PO QDAY, #60 TAB 5 Refills Prov:CONRAD MATTHEWS [facility] 05/22/18 Reported Medications Loratadine (CLARITIN) 10 Mg Capsule, 10 MG PO, CAPSULE 06/30/18 Fluticasone Prop 50 Mcg Ns (FLONASE 50 MCG NS) 16 Gm [place].susp, 1 SPRAY NS DAILY, BOT 06/30/18 Magnesium Oxide (MAG-OXIDE) 400 Mg Tablet, 250 MG PO 06/30/18 Acetaminophen (TYLENOL) 325 Mg Tablet, 325 MG PO PRN, #2 TAB 04/10/18 Ranitidine Hcl (ZANTAC) 150 Mg Tablet, 150 MG PO BID, TAB 04/10/18 Calcium Carbonate (TUMS) 200 Mg Tab.chew, 200 MG PO, TAB.CHEW 01/13/18 Vits W-Ca,Fe,Fa(<1MG) ( VITAMINS) 1 Each Tablet, 1 EACH PO DAILY, TAB 12/12/17 Follow up Referrals: [facility] @ [facility] with ROSALVA LOPEZ DO Follow up in: 2 wks PO Discharge Diet: As Tolerates, Resume Prior Admit Diet, Increase Fluid Intake Discharge Activity: As Tolerates, No Heavy Lifting x 6 wks, No Heavy Lifting > 10lb, Pelvic Rest Problem Qualifiers (1) Bipolar disorder: Active/Remission status: currently active CONRAD MATTHEWS [facility] July 03, 2018 10:00
[2018-07-03] MEDS ORDERED: MEASLES,MUMP,RUBELLA VAC 0.5ML SUBQ ONE (11:45)
[2018-07-03] MEDS ORDERED: INFLUENZA VIRUS VAC 0.5ML SYR IM ONLY ONE (11:45)
[2018-07-03] MEDS ORDERED: DIPHTH/TETANUS/ACEL. PERTUSSIS IM ONLY ONE (11:45)
[2018-07-03 12:15] VITALS: BP 134/80
[2018-07-03] MEDS ORDERED: OXYC-865 PO (12:36)
[2018-07-03] MEDS: oxyCODON/ACET (*)5/325MG (CII) 1 TAB TAB PO PRN (13:01)
== END 2018-07-03 16:45 | disposition home or self-care (01) | DRG 788 ==
LOC: OB 17:10
PROVIDERS: ADMIT Obstetrics & Gynecology; ATTEND Obstetrics & Gynecology
PROC: 10D00Z1 Extraction of Products of Conception, Low, Open Approach (ICD-10-PCS; principal; 2018-06-30)
DX: O14.04 Mild to moderate pre-eclampsia, complicating childbirth (principal); O99.344 Other mental disorders complicating childbirth; F31.9 Bipolar disorder, unspecified; Z3A.38 38 weeks gestation of pregnancy; Z37.0 Single live birth; Z88.8 Allergy status to other drugs, medicaments and biological substances; Z88.2 Allergy status to sulfonamides
CPT/HCPCS: 36415; 82040; 82247; 82310; 82374; 82435; 82565; 82947; 84075; 84132; 84155; 84295; 84450; 84460; 84520; 85014; 85018; 85025; 86703; 86850; 86900; 86901; J1885; J2270; J2300; J2370; J2405; J2590; J3010; J7120